=== PATIENT | female | born 1955 ===

== ENCOUNTER 2017-08-07 08:06 | Day surgery (SDC) | payer MEDICAID ==
[2017-08-07 08:22] VITALS: BMI 27.3
[2017-08-07 09:00] LABS: INR 1.1
[2017-08-07] MEDS ORDERED: Lactated Ringer's 1,000 ML IV ONE ×2 (09:09)
[2017-08-07] MEDS ORDERED: Midazolam 2 MG/2 ML VIAL ONE (09:12)
[2017-08-07] MEDS ORDERED: Propofol 10 mg/ml Inj (20 ML) ONE (09:12)
[2017-08-07] MEDS ORDERED: Silver Nitrate Topical - Stick ONE (09:43)
[2017-08-07] MEDS ORDERED: HYDROmorphone 0.5 mg/0.5 ml ISec IVP PRN (09:56)
--- NOTE | 2017-08-07 10:44 | PCM.SURG1 ---
Surgeon's Initial Post Op Note - Surgeon's Notes Surgeon: dr velez Drier Operator Head: none Type of Anesthesia: General LMA Anesthesia Administered By: dr coronel Pre-Operative Diagnosis: 61 yr with post menapusal bleeding/vaginal wall mass Operative Findings: see the op reort Post-Operative Diagnosis: same with vaginal wall mass Operation Performed: myasure/d&c, hysterscopy/vaginal mass removal Specimen/Specimens Removed: ecc. emc. polyp. vaginal mass removal Estimated Blood Loss: EBL {In ML}: 20 Blood Products Given: N/A Drains Used: No Drains Post-Op Condition: Good Date of Surgery/Procedure: 08/07/17 Time of Surgery/Procedure: 11:00
[2017-08-07 11:43] VITALS: RESP 18; TEMP 97; O2SAT 100
[2017-08-07 15:07] VITALS: BP 133/77; PULSE 69
--- NOTE | 2017-08-07 17:09 | CARD ---
APPROVED REPORT EKG Measurement Heart [id number] <Conclusion> Normal sinus rhythm Low voltage QRS Septal infarct, age undetermined Inferior infarct, age undetermined Abnormal ECG
--- NOTE | 2017-08-07 21:59 | OP ---
PROCEDURE DATE:08/07/2017 PREOPERATIVE DIAGNOSIS: A 61-year-old 3, para 3 with postmenopausal bleeding, rule out polyp. POSTOPERATIVE DIAGNOSIS: A 61-year-old 3, para 3 with postmenopausal bleeding, rule out polyp. PROCEDURE PERFORMED: MyoSure dilation and curettage, hysteroscopy, vaginal wall mass removal. SURGEON: Blue Reynaga MD KITCHEN DESIGNER: None. TYPE OF ANESTHESIA: General anesthesia. ANESTHESIA ADMINISTERED BY: Pawel Allen MD ESTIMATED BLOOD LOSS: 20 mL. COMPLICATIONS: None. DESCRIPTION OF PROCEDURE: After informed consent was obtained, the patient was brought to the operating room, placed on the table, general anesthesia was given. Once the anesthesia was given, the patient was prepped and draped in the normal sterile fashion. Uterus was found to be 8-week size. No pelvic or adnexal masses. On the vaginal wall, there is a small polyp-like mass protruding from the wall. Decision was made to take out after the procedure. After that, the anterior lip of the cervix was grasped with a tenaculum, gentle dilatation of the cervix was done. It was found a very small polyp on the posterior wall, very, very small like less than 1 cm. The decision again was to use the MyoSure. MyoSure was used to take out the polyp. After that, sharp curettage of all the king of the uterus was done. ECC was done and it was sent to the pathology. Then the tenaculum was taken out. After that, the vaginal wall was lifted with clamps and it was cut, and silver nitrate stick was used and the 3-0 chromic. The patient tolerated the procedure well. Deficit was 310 mL. Lap, sponge and instrument counts were correct x2. Blue Reynaga MD
== END 2017-08-07 11:55 | disposition home or self-care (01) ==
LOC: C.SDS 08:06
PROVIDERS: ATTEND Obstetrics & Gynecology
DX: N95.0 Postmenopausal bleeding (principal)
CPT/HCPCS: 36415; 58558; 82948; 85610; 85730; 88305; 93005; J1885; J2250; J2405; J2704; J3010; J7120